=== PATIENT | male | born 1960 | race African-American/Black ===

== ENCOUNTER 2018-08-01 11:56 | Inpatient (IN) | payer MEDICAID ==
[2018-08-01] VITALS (19 sets, daily range): BP systolic 72–181; BP diastolic 26–116
[~2018-08-01] VITALS: Ht 180.3 cm; Wt 98.9 kg
[2018-08-01] MEDS ORDERED: SODIUM CHLORIDE 0.9% 1,000 ML IV ONE (12:08)
[2018-08-01] MEDS ORDERED: ETOMIDATE 2MG/ML 10ML VIAL IV ONE ×2 (12:15→12:24)
[2018-08-01] MEDS ORDERED: LORAZEPAM 2MG/ML CPJ IV ONE (12:15)
[2018-08-01] MEDS ORDERED: LEVETIRACETAM 1,500 MG in SODIUM CHLORIDE 0.9% 100 ML IV SCH (12:15)
[2018-08-01] MEDS ORDERED: SUCCINYLCHOLINE CHLORIDE 200MG/10ML IV ONE ×2 (12:15→12:24)
[2018-08-01] MEDS ORDERED: PROPOFOL 10MG/ML 100ML 100 ML IV ONE ×2 (12:15→12:29)
[2018-08-01] MEDS ORDERED: LORAZEPAM 2MG/ML CPJ ONE (12:23)
[2018-08-01] MEDS ORDERED: VECURONIUM BROMIDE 10 MG/VIAL IV ONE (12:24)
[2018-08-01] MEDS ORDERED: SODIUM CHLORIDE 0.9% 10ML VIAL ONE (12:24)
[2018-08-01 12:29] LABS: BASOPHILS % 0.4 % (0.0-2.0); EOSINOPHILS % 1.2 % (0.0-5.0); HEMATOCRIT. 46.6 % (42.0-52.0); HEMOGLOBIN. 15.2 g/dL (14.0-18.0); LYMPHOCYTES % 26.9 % (20.0-50.0); MEAN CORPUSCULAR HEMOGLOBIN 30.2 pg (28.0-32.0); MEAN CORPUSCULAR VOLUME 92.8 fL (80.0-94.0); MEAN PLATELET VOLUME 7.9 fl (7.4-10.4); MONOCYTES % 7.7 % (2.0-8.0); NEUTROPHILS % 63.8 % (40.0-76.0); PLATELET 229 x1000/uL (130-400); RED BLOOD CELL COUNT 5.03 mill/uL (4.7-6.1); RED CELL DISTRIBUTION WIDTH 18.1 % (11.6-14.6)
[2018-08-01 12:34] LABS: CHLORIDE 110 mEq/L (98-107)
[2018-08-01 12:39] LABS: ETHANOL BLOOD < 10 mg/dL
[2018-08-01 12:42] LABS: LDL CHOLESTEROL 86 mg/dL (5-100); PROTHROMBIN TIME 10.4 sec (9.1-11.1)
[2018-08-01 12:44] LABS: CREATINE KINASE 231 IU/L (39-308)
[2018-08-01] MEDS ORDERED: PIPERACILLIN/TAZOBACTAM 3.375GM/50ML PREMIX IV ONE (13:00)
[2018-08-01] MEDS ORDERED: PIPERACILLIN/TAZ 3.375G PREMIX 50 ML IV SCH (13:15)
[2018-08-01] MEDS ORDERED: SODIUM CHLORIDE 0.9% 1000ML BAG (SEPSIS BOLUS) IV ONE (13:15)
[2018-08-01] MEDS ORDERED: MIDAZOLAM HCL 2 MG/2 ML VIAL IV ONE ×3 (13:15→14:45)
[2018-08-01] MEDS ORDERED: ONDANSETRON HCL 4MG/2ML INJ IV PRN (14:00)
[2018-08-01] MEDS ORDERED: IPRATROPIUM/ALBUTEROL 0.5-3(2.5)MG/3ML NEB INH PRN (14:00)
[2018-08-01] MEDS ORDERED: IPRATROPIUM/ALBUTEROL 0.5-3(2.5)MG/3ML NEB HHN PRN (14:00)
[2018-08-01 14:29] LABS: BG BASE EXCESS -2.7 mmol/L (-2.0-2.0); BG CARBOXYHEMOGLOBIN 0.7 % (0.5-1.5); BG DEOXYHEMOGLOBIN 0.5 % (0.0-5.0); BG FRACTION INSPIRED OXYGEN 80; BG HCO3 ACT 24.2 mmol/L (22.0-26.0); BG METHEMOGLOBIN 0.7 % (0.0-1.5); BG OXYGEN SATURATION 99.5 % (92.0-98.5); BG OXYHEMOGLOBIN 98.1 % (94.0-97.0); BG PCO2 50.5 mmHg (35.0-45.0); BG PH 7.298 (7.350-7.450); BG PO2 359.6 mmHg (75.0-100.0); BG SAMPLE SITE RIGHT RADIAL; BG TIDAL VOLUME(mL) 550 mL; BG TOTAL HEMOGLOBIN 13.4 g/dL (12.0-18.0); BG VENT MODE VENT - A/C; BG VENT RATE 14 set
[2018-08-01 14:56] LABS: CLARITY URINE CLEAR (CLEAR); COLOR URINE YELLOW (YELLOW); KETONES URINE TRACE (NEGATIVE); LEUKOCYTE ESTERASE URINE NEGATIVE (NEGATIVE); NITRITE URINE NEGATIVE (NEGATIVE); OCCULT BLOOD URINE 2+ (NEGATIVE); PROTEIN URINE NEGATIVE (NEGATIVE); SPECIFIC GRAVITY URINE 1.022 (1.005-1.030); UROBILINOGEN URINE 0.2 E.U./dL (0.2-1.0)
[2018-08-01 15:13] LABS: *AMPHETAMINES SCREEN URINE PRESUMTIVE POSITIVE (NEGATIVE); *BARBITURATES SCREEN URINE NEGATIVE (NEGATIVE); CANNABINOID URINE SCREEN PRESUMTIVE POSITIVE (NEGATIVE); METHADONE URINE SCREEN NEGATIVE (NEGATIVE); OPIATES URINE SCREEN NEGATIVE (NEGATIVE); PHENCYCLIDINE URINE SCREEN NEGATIVE (NEGATIVE)
[2018-08-01 15:14] LABS: *BENZODIAZEPINES SCREEN URINE PRESUMTIVE POSITIVE (NEGATIVE); *COCAINE SCREEN URINE NEGATIVE (NEGATIVE)
[2018-08-01] MEDS ORDERED: MIDAZOLAM HCL 50 MG in DEXTROSE 5% WATER 50ML IV PRN (16:30)
[2018-08-01 16:37] LABS: CREATINE KINASE MB FRACTION 2.4 ng/mL (0.5-3.6)
[2018-08-01 16:46] LABS: HEPATITIS B SURFACE ANTIGEN NEGATIVE
[2018-08-01] MEDS: DEXTROSE 5% WATER 1,000 ML IV SCH (16:54)
[2018-08-01] MEDS ORDERED: FENTANYL CITRATE/PF 500 MCG in SODIUM CHLORIDE 0.9% 40 ML IV PRN (17:00)
[2018-08-01] MEDS ORDERED: MIDAZOLAM HCL 100 MG in DEXT 5% WATER 80 ML IV PRN (17:00)
[2018-08-01] MEDS: PANTOPRAZOLE SODIUM 40 MG/VIAL IV SCH (17:07)
[2018-08-01] MEDS: HYDRALAZINE 20MG/ML VIAL IV PRN (17:08)
[2018-08-01 17:14] LABS: HEPATITIS A AB IGM NEGATIVE (NEGATIVE)
[2018-08-01] MEDS: CEFEPIME 1,000 MG in DEXTROSE 5% WATER 50 ML IV SCH (17:56)
[2018-08-01] MEDS: FENTANYL 500 MCG in SODIUM CHLORIDE 0.9% 50 ML IV PRN (18:36)
[2018-08-01] MEDS: METRONIDAZOLE 500 MG PREMIX 100 ML IV SCH (19:34)
[2018-08-01] MEDS: IPRATROPIUM/ALBUTEROL 0.5-3(2.5)MG/3ML NEB HHN SCH (20:35)
[2018-08-01] MEDS ORDERED: ENOXAPARIN 40MG/0.4ML SYR SUBCUT SCH (21:00)
[2018-08-01] MEDS: MIDAZOLAM HCL 100 MG in DEXT 5% WATER 80 ML IV PRN (22:29)
[2018-08-02] VITALS (48 sets, daily range): BP systolic 120–168; BP diastolic 77–109
[2018-08-02] MEDS: FENTANYL 500 MCG in SODIUM CHLORIDE 0.9% 50 ML IV PRN ×2 (01:34→14:42)
[2018-08-02] MEDS: IPRATROPIUM/ALBUTEROL 0.5-3(2.5)MG/3ML NEB HHN SCH ×4 (02:50→19:53)
[2018-08-02] MEDS: METRONIDAZOLE 500 MG PREMIX 100 ML IV SCH ×3 (02:54→22:16)
[2018-08-02] MEDS: CEFEPIME 1,000 MG in DEXTROSE 5% WATER 50 ML IV SCH ×2 (05:34→20:50)
[2018-08-02] MEDS: DEXTROSE 5% WATER 1,000 ML IV SCH ×2 (05:36→14:39)
[2018-08-02] MEDS: INSULIN LISPRO 100 UNITS/ML SUBCUT SCH ×4 (06:00→17:18)
[2018-08-02] MEDS: BLOOD SUGAR DIAGNOSTIC STRIP TEST SCH ×4 (06:00→17:17)
[2018-08-02 06:25] LABS: BASOPHILS % 0.5 % (0.0-2.0); HEMATOCRIT. 43.2 % (42.0-52.0); HEMOGLOBIN. 14.2 g/dL (14.0-18.0); LYMPHOCYTES % 16.8 % (20.0-50.0); MEAN CORPUSCULAR HEMOGLOBIN 30.3 pg (28.0-32.0); MEAN CORPUSCULAR VOLUME 91.8 fL (80.0-94.0); MEAN PLATELET VOLUME 8.3 fl (7.4-10.4); MONOCYTES % 9.8 % (2.0-8.0); NEUTROPHILS % 70.9 % (40.0-76.0); PLATELET 201 x1000/uL (130-400); RED CELL DISTRIBUTION WIDTH 18.1 % (11.6-14.6)
[2018-08-02 06:57] LABS: CHLORIDE 107 mEq/L (98-107)
[2018-08-02 07:03] LABS: LDL CHOLESTEROL 72 mg/dL (5-100)
[2018-08-02 07:05] LABS: HDL CHOLESTEROL 40 mg/dL (40-59)
[2018-08-02 07:47] LABS: BG BASE EXCESS 0.7 mmol/L (-2.0-2.0); BG DEOXYHEMOGLOBIN 2.3 % (0.0-5.0); BG HCO3 ACT 26.2 mmol/L (22.0-26.0); BG METHEMOGLOBIN 0.6 % (0.0-1.5); BG OXYGEN SATURATION 97.7 % (92.0-98.5); BG OXYHEMOGLOBIN 96.1 % (94.0-97.0); BG PCO2 45.6 mmHg (35.0-45.0); BG PH 7.378 (7.350-7.450); BG PO2 101.1 mmHg (75.0-100.0); BG SAMPLE SITE RIGHT RADIAL; BG TIDAL VOLUME(mL) 500 mL; BG TOTAL HEMOGLOBIN 14.1 g/dL (12.0-18.0); BG VENT MODE VENT - A/C; BG VENT RATE 16 set
[2018-08-02] MEDS ORDERED: POTASSIUM CHLORIDE 20MEQ/PACKET PO SCH (08:00)
[2018-08-02] MEDS: PANTOPRAZOLE SODIUM 40 MG/VIAL IV SCH (09:33)
[2018-08-02] MEDS: RISPERIDONE 1MG TABLET PO SCH ×2 (09:34→21:16)
[2018-08-02] MEDS: THIAMINE HCL 100MG TABLET PO SCH (12:17)
[2018-08-02] MEDS: FOLIC ACID 1MG TABLET PO SCH (12:17)
[2018-08-02] MEDS: MULTIVITAMINS,THER W-MINERALS TABLET PO SCH (12:17)
[2018-08-02] MEDS: DEXTROSE 50% WATER 50ML SYRINGE IV PRN ×2 (12:18→17:17)
[2018-08-02] MEDS: LEVETIRACETAM 500 MG in SODIUM CHLORIDE 0.9% 100 ML IV SCH ×2 (12:22→20:50)
[2018-08-02 12:47] LABS: T4 FREE 1.49 ng/dL (0.76-1.46)
[2018-08-02] MEDS: MIDAZOLAM HCL 100 MG in DEXT 5% WATER 80 ML IV PRN (14:42)
[2018-08-02] MEDS: DIPHENHYDRAMINE 50MG/ML VIAL IV PRN (15:34)
[2018-08-02] MEDS: LORAZEPAM 2MG/ML CPJ IV PRN ×2 (15:34→18:58)
[2018-08-02] MEDS: ENOXAPARIN 30MG/0.3ML SYR SUBCUT SCH (21:16)
[2018-08-03] VITALS (73 sets, daily range): BP systolic 83–170; BP diastolic 51–110
[2018-08-03] MEDS: DEXTROSE 50% WATER 50ML SYRINGE IV PRN (00:02)
[2018-08-03] MEDS: BLOOD SUGAR DIAGNOSTIC STRIP TEST SCH ×3 (00:03→12:00)
[2018-08-03] MEDS: DEXTROSE 5% WATER 1,000 ML IV SCH ×3 (01:45→23:35)
[2018-08-03] MEDS: IPRATROPIUM/ALBUTEROL 0.5-3(2.5)MG/3ML NEB HHN SCH ×3 (02:13→20:28)
[2018-08-03] MEDS: FENTANYL 500 MCG in SODIUM CHLORIDE 0.9% 50 ML IV PRN (03:17)
[2018-08-03] MEDS: INSULIN LISPRO 100 UNITS/ML SUBCUT SCH ×3 (06:00→12:00)
[2018-08-03] MEDS: METRONIDAZOLE 500 MG PREMIX 100 ML IV SCH ×3 (06:07→21:43)
[2018-08-03 06:23] LABS: CHLORIDE 107 mEq/L (98-107)
[2018-08-03 06:24] LABS: BASOPHILS % 0.4 % (0.0-2.0); EOSINOPHILS % 1.4 % (0.0-5.0); HEMATOCRIT. 47.3 % (42.0-52.0); HEMOGLOBIN. 15.5 g/dL (14.0-18.0); LYMPHOCYTES % 18.6 % (20.0-50.0); MEAN CORPUSCULAR HEMOGLOBIN 30.4 pg (28.0-32.0); MEAN CORPUSCULAR VOLUME 92.5 fL (80.0-94.0); MEAN PLATELET VOLUME 8.2 fl (7.4-10.4); MONOCYTES % 10.2 % (2.0-8.0); NEUTROPHILS % 69.4 % (40.0-76.0); PLATELET 198 x1000/uL (130-400); RED BLOOD CELL COUNT 5.11 mill/uL (4.7-6.1); RED CELL DISTRIBUTION WIDTH 18.5 % (11.6-14.6)
[2018-08-03] MEDS: ENOXAPARIN 30MG/0.3ML SYR SUBCUT SCH ×2 (10:16→21:21)
[2018-08-03] MEDS: FOLIC ACID 1MG TABLET PO SCH (10:17)
[2018-08-03] MEDS: THIAMINE HCL 100MG TABLET PO SCH (10:18)
[2018-08-03] MEDS: MULTIVITAMINS,THER W-MINERALS TABLET PO SCH (10:18)
[2018-08-03] MEDS: RISPERIDONE 1MG TABLET PO SCH ×2 (10:18→21:21)
[2018-08-03] MEDS: PANTOPRAZOLE SODIUM 40 MG/VIAL IV SCH (10:18)
[2018-08-03] MEDS: MIDAZOLAM HCL 100 MG in DEXT 5% WATER 80 ML IV PRN (10:20)
[2018-08-03] MEDS ORDERED: LORAZEPAM 2MG/ML CPJ IV PRN (11:15)
[2018-08-03] MEDS: LORAZEPAM 2MG/ML CPJ IV PRN ×5 (11:18→23:38)
[2018-08-03] MEDS: CEFEPIME 1,000 MG in DEXTROSE 5% WATER 50 ML IV SCH ×2 (11:49→21:06)
[2018-08-03] MEDS: LEVETIRACETAM 500 MG in SODIUM CHLORIDE 0.9% 100 ML IV SCH ×2 (11:54→21:06)
[2018-08-03 12:27] LABS: BG BASE EXCESS 0.5 mmol/L (-2.0-2.0); BG CARBOXYHEMOGLOBIN 0.8 % (0.5-1.5); BG DEOXYHEMOGLOBIN 2.4 % (0.0-5.0); BG FRACTION INSPIRED OXYGEN 40; BG HCO3 ACT 25.2 mmol/L (22.0-26.0); BG METHEMOGLOBIN 0.5 % (0.0-1.5); BG OXYGEN SATURATION 97.6 % (92.0-98.5); BG OXYHEMOGLOBIN 96.3 % (94.0-97.0); BG PCO2 41.2 mmHg (35.0-45.0); BG PH 7.405 (7.350-7.450); BG PO2 99.8 mmHg (75.0-100.0); BG PRESSURE SUPPORT 8; BG SAMPLE SITE RIGHT RADIAL; BG TOTAL HEMOGLOBIN 14.6 g/dL (12.0-18.0); BG VENT MODE VENT - CPAP
[2018-08-03] MEDS ORDERED: POTASSIUM CHLORIDE 20MEQ/PACKET PO NR (13:00)
[2018-08-03 13:06] LABS: HIV SCREEN 4G Non Reactive (Non Reactive)
[2018-08-03 21:32] LABS: BG BASE EXCESS 1.2 mmol/L (-2.0-2.0); BG CARBOXYHEMOGLOBIN 1.1 % (0.5-1.5); BG DEOXYHEMOGLOBIN 2.2 % (0.0-5.0); BG FRACTION INSPIRED OXYGEN 35; BG HCO3 ACT 26.3 mmol/L (22.0-26.0); BG METHEMOGLOBIN 0.5 % (0.0-1.5); BG OXYGEN SATURATION 97.8 % (92.0-98.5); BG OXYHEMOGLOBIN 96.2 % (94.0-97.0); BG PCO2 43.4 mmHg (35.0-45.0); BG PH 7.401 (7.350-7.450); BG PO2 104.4 mmHg (75.0-100.0); BG SAMPLE SITE RIGHT RADIAL; BG TOTAL HEMOGLOBIN 15.2 g/dL (12.0-18.0); BG VENT MODE MASK - AEROSOL
[2018-08-03] MEDS: HYDRALAZINE 20MG/ML VIAL IV PRN (22:55)
[2018-08-04] VITALS (42 sets, daily range): BP systolic 139–182; BP diastolic 70–122
[2018-08-04] MEDS: DIPHENHYDRAMINE 50MG/ML VIAL IV PRN (01:46)
[2018-08-04] MEDS: LORAZEPAM 2MG/ML CPJ IV PRN (01:47)
[2018-08-04] MEDS: IPRATROPIUM/ALBUTEROL 0.5-3(2.5)MG/3ML NEB HHN SCH ×4 (02:02→20:15)
[2018-08-04 05:14] LABS: CHLORIDE 109 mEq/L (98-107)
[2018-08-04] MEDS: METRONIDAZOLE 500 MG PREMIX 100 ML IV SCH ×3 (05:31→21:35)
[2018-08-04] MEDS: INSULIN LISPRO 100 UNITS/ML SUBCUT SCH ×4 (06:00→23:46)
[2018-08-04] MEDS: BLOOD SUGAR DIAGNOSTIC STRIP TEST SCH ×4 (06:48→23:33)
[2018-08-04] MEDS: CEFEPIME 1,000 MG in DEXTROSE 5% WATER 50 ML IV SCH ×2 (08:59→20:16)
[2018-08-04] MEDS: LEVETIRACETAM 500 MG in SODIUM CHLORIDE 0.9% 100 ML IV SCH ×2 (08:59→20:16)
[2018-08-04] MEDS: PANTOPRAZOLE SODIUM 40 MG/VIAL IV SCH (08:59)
[2018-08-04] MEDS: ENOXAPARIN 30MG/0.3ML SYR SUBCUT SCH ×2 (09:00→20:43)
[2018-08-04] MEDS: FOLIC ACID 1MG TABLET PO SCH (09:57)
[2018-08-04] MEDS: THIAMINE HCL 100MG TABLET PO SCH (09:57)
[2018-08-04] MEDS: DEXTROSE 5% WATER 1,000 ML IV SCH ×2 (09:57→23:33)
[2018-08-04] MEDS: MULTIVITAMINS,THER W-MINERALS TABLET PO SCH (09:57)
[2018-08-04] MEDS: RISPERIDONE 1MG TABLET PO SCH ×2 (09:57→20:42)
[2018-08-04] MEDS: HYDRALAZINE 20MG/ML VIAL IV PRN (10:12)
[2018-08-04] MEDS ORDERED: HYDROCODONE/ACETAMINOPHEN 5/325MG TABLET PO PRN (14:45)
[2018-08-04] MEDS ORDERED: HYDRALAZINE 20MG/ML VIAL IV NR (16:00)
[2018-08-04] MEDS ORDERED: HYDRALAZINE 20MG/ML VIAL IV PRN (16:45)
[2018-08-05] MEDS: IPRATROPIUM/ALBUTEROL 0.5-3(2.5)MG/3ML NEB HHN SCH ×4 (01:01→20:41)
[2018-08-05 04:00] VITALS: BP 115/90
[2018-08-05] MEDS: BLOOD SUGAR DIAGNOSTIC STRIP TEST SCH ×3 (05:19→17:54)
[2018-08-05] MEDS: METRONIDAZOLE 500 MG PREMIX 100 ML IV SCH ×3 (05:19→22:57)
[2018-08-05] MEDS: INSULIN LISPRO 100 UNITS/ML SUBCUT SCH ×2 (06:00→12:00)
[2018-08-05 07:02] LABS: BASOPHILS % 0.3 % (0.0-2.0); HEMATOCRIT. 43.4 % (42.0-52.0); HEMOGLOBIN. 14.3 g/dL (14.0-18.0); LYMPHOCYTES % 9.5 % (20.0-50.0); MEAN CORPUSCULAR HEMOGLOBIN 30.1 pg (28.0-32.0); MEAN CORPUSCULAR VOLUME 91.1 fL (80.0-94.0); MEAN PLATELET VOLUME 8.5 fl (7.4-10.4); MONOCYTES % 9.9 % (2.0-8.0); NEUTROPHILS % 79.3 % (40.0-76.0); PLATELET 214 x1000/uL (130-400); RED BLOOD CELL COUNT 4.76 mill/uL (4.7-6.1); RED CELL DISTRIBUTION WIDTH 17.8 % (11.6-14.6)
[2018-08-05 07:28] LABS: CHLORIDE 104 mEq/L (98-107)
[2018-08-05 08:00] VITALS: BP 156/89
[2018-08-05] MEDS: FOLIC ACID 1MG TABLET PO SCH (08:14)
[2018-08-05] MEDS: THIAMINE HCL 100MG TABLET PO SCH (08:14)
[2018-08-05] MEDS: MULTIVITAMINS,THER W-MINERALS TABLET PO SCH (08:14)
[2018-08-05] MEDS: RISPERIDONE 1MG TABLET PO SCH ×2 (08:14→21:51)
[2018-08-05] MEDS: PANTOPRAZOLE SODIUM 40 MG/VIAL IV SCH (08:15)
[2018-08-05] MEDS: ENOXAPARIN 30MG/0.3ML SYR SUBCUT SCH ×2 (08:15→21:50)
[2018-08-05] MEDS: CEFEPIME 1,000 MG in DEXTROSE 5% WATER 50 ML IV SCH ×2 (08:15→20:19)
[2018-08-05 12:00] VITALS: BP 156/89
[2018-08-05] MEDS: LEVETIRACETAM 500 MG in SODIUM CHLORIDE 0.9% 100 ML IV SCH ×2 (13:11→21:51)
[2018-08-05] MEDS: DEXTROSE 5% WATER 1,000 ML IV SCH (13:28)
[2018-08-05 16:00] VITALS: BP 144/95
[2018-08-05 20:00] VITALS: BP 146/90
[2018-08-06] VITALS: BP 130/89
[2018-08-06] MEDS: BLOOD SUGAR DIAGNOSTIC STRIP TEST SCH ×3 (00:01→12:46)
[2018-08-06] MEDS: IPRATROPIUM/ALBUTEROL 0.5-3(2.5)MG/3ML NEB HHN SCH ×2 (02:10→14:43)
[2018-08-06 04:00] VITALS: BP 150/79
[2018-08-06] MEDS: METRONIDAZOLE 500 MG PREMIX 100 ML IV SCH (05:18)
[2018-08-06] MEDS: INSULIN LISPRO 100 UNITS/ML SUBCUT SCH ×3 (06:00→12:00)
[2018-08-06 07:11] LABS: BASOPHILS % 0.5 % (0.0-2.0); HEMATOCRIT. 39.6 % (42.0-52.0); HEMOGLOBIN. 12.9 g/dL (14.0-18.0); LYMPHOCYTES % 16.3 % (20.0-50.0); MEAN CORPUSCULAR HEMOGLOBIN 29.7 pg (28.0-32.0); MEAN CORPUSCULAR VOLUME 91.6 fL (80.0-94.0); MEAN PLATELET VOLUME 8.4 fl (7.4-10.4); MONOCYTES % 11.4 % (2.0-8.0); NEUTROPHILS % 69.8 % (40.0-76.0); PLATELET 226 x1000/uL (130-400); RED BLOOD CELL COUNT 4.33 mill/uL (4.7-6.1)
[2018-08-06 07:19] LABS: CHLORIDE 105 mEq/L (98-107)
[2018-08-06 08:00] VITALS: BP 151/82
[2018-08-06] MEDS: CEFEPIME 1,000 MG in DEXTROSE 5% WATER 50 ML IV SCH (08:14)
[2018-08-06] MEDS: THIAMINE HCL 100MG TABLET PO SCH (08:14)
[2018-08-06] MEDS: FOLIC ACID 1MG TABLET PO SCH (08:14)
[2018-08-06] MEDS: PANTOPRAZOLE SODIUM 40 MG/VIAL IV SCH (08:14)
[2018-08-06] MEDS: RISPERIDONE 1MG TABLET PO SCH (08:15)
[2018-08-06] MEDS: MULTIVITAMINS,THER W-MINERALS TABLET PO SCH (08:19)
[2018-08-06] MEDS: ENOXAPARIN 30MG/0.3ML SYR SUBCUT SCH (08:19)
[2018-08-06] MEDS: LEVETIRACETAM 500 MG in SODIUM CHLORIDE 0.9% 100 ML IV SCH (09:52)
[2018-08-06 12:00] VITALS: BP 162/98
[2018-08-06 15:24] VITALS: BP 151/82
[2018-08-06 16:00] VITALS: BP 148/68
[2018-08-07] MEDS ORDERED: METRONIDAZOLE 500MG TABLET PO SCH (06:00)
[2018-08-07] MEDS ORDERED: FAMOTIDINE 20MG TABLET PO SCH (09:00)
== END 2018-08-06 17:44 | disposition home or self-care (01) | DRG 812 ==
LOC: ER 11:56 → EDBEDREQ 12:34 → EDBEDREQSVC 12:37 → CVICU 13:10 → EDBEDREQ 13:19 → ENRESERV 13:52 → 7WST 08-04 22:53
PROVIDERS: ADMIT Internal Medicine; ATTEND Internal Medicine
PROC: 5A1945Z Respiratory Ventilation, 24-96 Consecutive Hours (ICD-10-PCS; principal; 2018-08-01)
PROC: 0BH17EZ Insertion of Endotracheal Airway into Trachea, Via Natural or Artificial Opening (ICD-10-PCS; 2018-08-01)
PROC: 4A00X4Z Measurement of Central Nervous Electrical Activity, External Approach (ICD-10-PCS; 2018-08-02)
DX: T50.901A Poisoning by unspecified drugs, medicaments and biological substances, accidental (unintentional), initial encounter (principal); J96.00 Acute respiratory failure, unspecified whether with hypoxia or hypercapnia; G92 Toxic encephalopathy; Z78.1 Physical restraint status; Z86.73 Personal history of transient ischemic attack (TIA), and cerebral infarction without residual deficits; I10 Essential (primary) hypertension; C34.90 Malignant neoplasm of unspecified part of unspecified bronchus or lung; E87.6 Hypokalemia; E78.5 Hyperlipidemia, unspecified; F19.10 Other psychoactive substance abuse, uncomplicated; F15.10 Other stimulant abuse, uncomplicated; F12.10 Cannabis abuse, uncomplicated; Y92.89 Other specified places as the place of occurrence of the external cause
CPT/HCPCS: 36415; 36600; 70551; 71045; 80048; 80061; 80305; 80320; 82140; 82375; 82550; 82553; 82607; 82746; 82805; 82962; 83036; 83605; 83721; 83735; 84100; 84439; 84443; 84481; 84484; 86705; 86709; 86803; 87340; 87389; 92610; 93005; 93306; 93970; 94002; 94003; 94640; 96374; 96375; 99291; C9113; J0330; J0360; J0692; J1200; J1650; J1953; J2060; J2250; J2405; J2543; J2704; J3010; J3490; J7030; J7050; J7060; J7070; J7620; G0480

== ENCOUNTER 2018-08-08 20:01 | Emergency (ER) | payer MEDICAID ==
[~2018-08-08] VITALS: Ht 188 cm; Wt 96.5 kg
[2018-08-08 22:41] VITALS: BP 132/94
== END 2018-08-08 22:44 | disposition home or self-care (01) ==
LOC: ER 20:01
DX: Z76.89 Persons encountering health services in other specified circumstances (principal)
CPT/HCPCS: 99283